=== PATIENT | female | born 1970 | race Caucasian/White ===

== ENCOUNTER 2023-06-06 12:35 | Emergency (ER) | payer OTHER ==
[2023-06-06 12:51] VITALS: BP 111/69; PULSE 94; RESP 18; TEMP 98.8; BMI 40.2
== END 2023-06-06 15:11 | disposition home or self-care (01) ==
LOC: FER 12:35
DX: H61.23 Impacted cerumen, bilateral (principal)
CPT/HCPCS: 99282-25

== ENCOUNTER 2024-03-29 20:07 | Emergency (ER) | payer OTHER ==
[2024-03-29 20:27] VITALS: BP 119/69; PULSE 99; RESP 18; TEMP 98.7; BMI 40.2
[2024-03-29] MEDS ORDERED: LIDOCAINE 5% TOPICAL PATCH ONE (20:27)
[2024-03-29] MEDS ORDERED: ACETAMINOPHEN 325 MG TABLET (FP) ONE (20:27)
[2024-03-29] MEDS: ACETAMINOPHEN 325 MG TABLET (FP) PO ONE (20:32)
[2024-03-29] MEDS: LIDOCAINE 5% TOPICAL PATCH TP ONE (20:32)
[2024-03-30] MEDS ORDERED: LIDOCAINE PATCH REMOVAL MC SCH (08:00)
== END 2024-03-29 21:24 | disposition home or self-care (01) ==
LOC: FER 20:07
DX: M54.9 Dorsalgia, unspecified (principal)
CPT/HCPCS: 99283-25

== ENCOUNTER 2024-12-25 20:37 | Inpatient (IN) | payer OTHER ==
[2024-12-25] MEDS ORDERED: ACETAMINOPHEN 325 MG TABLET (FP) ONE (21:30)
[2024-12-25] MEDS ORDERED: ALPRAZolam 0.25 MG TABLET ONE (21:31)
[2024-12-25] MEDS ORDERED: ALBUTEROL SO4 2.5/IPRATROPIUM 0.5 INH SOL 3 ML VIAL.NEB. NEB ONE (21:31)
[2024-12-25] MEDS: ALBUTEROL SO4 2.5/IPRATROPIUM 0.5 INH SOL 3 ML VIAL.NEB. NEB ONE (21:35)
[2024-12-25] MEDS: ACETAMINOPHEN 325 MG TABLET (FP) PO ONE (21:35)
[2024-12-25] MEDS: ALPRAZolam 1 MG TABLET PO PRN (21:36)
[2024-12-25 23:30] LABS: HEMATOCRIT 39.5 % (32.4-45.2); HEMOGLOBIN 13.6 G/dL (10.7-15.3); MCH 31.4 pg (25.7-33.7); MCHC 34.5 g/dl (32.0-36.0); MEAN CELL VOLUME 91.1 fl (80-96); MEAN PLT VOLUME 8.9 fl (7.5-11.1); PLATELET COUNT 243.5 10^3/uL (134-434); RBC 4.34 10^6/uL (3.60-5.2); RDW 13.4 % (11.6-15.6); WHITE BLOOD COUNT 10.5 10^3/uL (4.0-10.8)
[2024-12-25 23:50] LABS: ALBUMIN 4.5 g/dl (3.4-5.0); BILIRUBIN,TOTAL 0.7 mg/dl (0.2-1); CALCIUM 10.1 mg/dl (8.5-10.1); CREATININE 0.7 mg/dl (0.6-1.3); INR 1.27 (0.83-1.09); POTASSIUM 4.5 mmol/L (3.5-5.1); PROTHROMBIN TIME (PATIENT) 14.4 SEC (9.7-13.0); TOT PROT 7.1 g/dl (6.4-8.2)
[2024-12-26] MEDS ORDERED: ALBUTEROL SO4 2.5/IPRATROPIUM 0.5 INH SOL 3 ML VIAL.NEB. NEB ONE (00:03)
[2024-12-26] MEDS: ALBUTEROL SO4 2.5/IPRATROPIUM 0.5 INH SOL 3 ML VIAL.NEB. NEB ONE (00:05)
[2024-12-26 00:18] LABS: VENOUS BASE EXCESS 2.5 mmol/L (-2-2); VENOUS PCO2 50.8 mmHg (38-52); VENOUS PH 7.37 (7.310-7.410)
[2024-12-26 00:53] LABS: LACTIC ACID 2.9 mmol/L (0.4-2.0)
[2024-12-26] MEDS: SODIUM CHLORIDE 0.9% 1000 ML INFUS.BAG IV ONE (01:07)
[2024-12-26] MEDS ORDERED: OSELTAMIVIR PHOSPHATE 75 MG CAPSULE ONE (01:10)
[2024-12-26] MEDS: OSELTAMIVIR PHOSPHATE 75 MG CAPSULE PO ONE (01:22)
[2024-12-26] MEDS ORDERED: cefTRIAXone SODIUM 1 GM VIAL ONE (01:55)
[2024-12-26] MEDS ORDERED: VANCOMYCIN 1,000 MG VIAL (RESTRICTED TO ID ONLY) ONE (01:55)
[2024-12-26] MEDS: CEFTRIAXONE 1,000 MG in DEXTROSE 5%-WATER - 50 ML IVPB ONE (01:59)
[2024-12-26] MEDS: VANCOMYCIN 2,000 MG in DEXTROSE 5%-WATER - 500 ML IVPB ONE (02:05)
[2024-12-26] MEDS ORDERED: DOCUSATE SODIUM 100 MG CAPSULE (FP) PO PRN (02:10)
[2024-12-26] MEDS ORDERED: ALBUTEROL SO4 2.5/IPRATROPIUM 0.5 INH SOL 3 ML VIAL.NEB. NEB PRN (02:19)
[2024-12-26 03:59] LABS: LACTIC ACID 2.5 mmol/L (0.4-2.0)
[2024-12-26 06:26] VITALS: BMI 39.1
[2024-12-26] MEDS: INSULIN ASPART SLIDING SCALE (NOVOLOG) 1 VIAL SQ SCH (07:07)
[2024-12-26] MEDS: ACETAMINOPHEN 325 MG TABLET (FP) PO PRN (08:10)
[2024-12-26 09:17] LABS: INR 1.11 (0.83-1.09); PROTHROMBIN TIME (PATIENT) 12.6 SEC (9.7-13.0)
[2024-12-26 09:19] LABS: ACTIVATED PTT 33.8 SECONDS (25.2-36.5)
[2024-12-26 09:38] LABS: CALCIUM 9.6 mg/dl (8.5-10.1); CREATININE 0.8 mg/dl (0.6-1.3); MAGNESIUM 2.1 mg/dL (1.8-2.4); POTASSIUM 4.7 mmol/L (3.5-5.1)
[2024-12-26 11:59] LABS: BASO % 0.2 % (0-2.0); EOS % 1.6 % (0-4.5); HEMATOCRIT 42.1 % (32.4-45.2); HEMOGLOBIN 13.6 GM/dL (10.7-15.3); LYMPH % 11.9 % (8-40); MCHC 32.4 g/dl (32.0-36.0); MEAN CELL VOLUME 92.7 fl (80-96); MEAN PLT VOLUME 9.1 fl (7.5-11.1); MONO % 10.9 % (3.8-10.2); NEUT % 75.4 % (42.8-82.8); PLATELET COUNT 222 10^3/uL (134-434); RBC 4.54 M/mm3 (3.60-5.2); RDW 14.4 % (11.6-15.6); WHITE BLOOD COUNT 9.3 K/mm3 (4.0-10.0)
[2024-12-26] MEDS: ACETAMINOPHEN 1000 MG/100 ML BAG IVPB PRN (12:14)
[2024-12-26 14:31] LABS: PH,URINE 5.5 (4.5-8); URINE APPEARANCE CLEAR; URINE BILIRUBIN NEGATIVE (NEGATIVE); URINE COLOR YELLOW; URINE GLUCOSE (UA) NEGATIVE (NEGATIVE); URINE KETONE NEGATIVE (NEGATIVE)
[2024-12-26 14:32] LABS: URINE BACTERIA FEW /hpf (NEGATIVE); URINE LEUK ESTERASE 0 (NEGATIVE); URINE NITRITE NEGATIVE (NEGATIVE); URINE PROTEIN 1+ (NEGATIVE); URINE RBC 0-1 /hpf (0-4); URINE UROBILINOGEN 0.2 (0.2-1.0)
[2024-12-26] MEDS: VANCOMYCIN/WATER FOR INJ (PEG) 1,000 MG/200 ML BAG IVPB ONE (15:30)
[2024-12-26 17:21] LABS: URINE AMPHETAMINES NEGATIVE (NEGATIVE)
[2024-12-26 17:22] LABS: METHADONE, UR NEGATIVE (NEGATIVE); PHENCYCLIDINE,URINE NEGATIVE (NEGATIVE); URINE BARBITURATES NEGATIVE (NEGATIVE); URINE BENZODIAZEPINES NEGATIVE (NEGATIVE)
[2024-12-26 17:27] LABS: COCAINE, UR NEGATIVE (NEGATIVE); OPIATES, URI NEGATIVE (NEGATIVE)
[2024-12-26] MEDS: LACTATED RINGERS SOLUTION 1,000 ML/1,000 ML INFUS.BAG IV SCH (18:19)
[2024-12-26] MEDS: OSELTAMIVIR PHOSPHATE 75 MG CAPSULE PO SCH (21:12)
[2024-12-26] MEDS: CEFTRIAXONE 1 GM in DEXTROSE 5%-WATER - 50 ML IVPB SCH (21:12)
[2024-12-26] MEDS: BENZOCAINE/MENTH/CETYLPYRD CL 1 EACH LOZENGE MM PRN (22:23)
[2024-12-27 08:52] LABS: BILIRUBIN,TOTAL 0.6 mg/dl (0.2-1); CALCIUM 9.3 mg/dl (8.5-10.1); CREATININE 0.5 mg/dl (0.6-1.3); POTASSIUM 4.2 mmol/L (3.5-5.1); TOT PROT 6.8 g/dl (6.4-8.2)
[2024-12-27 09:19] LABS: HEMATOCRIT 37.2 % (32.4-45.2); HEMOGLOBIN 11.9 GM/dL (10.7-15.3); MCH 29.1 pg (25.7-33.7); MCHC 31.9 g/dl (32.0-36.0); MEAN CELL VOLUME 91.3 fl (80-96); MEAN PLT VOLUME 9.2 fl (7.5-11.1); PLATELET COUNT 209 10^3/uL (134-434); RBC 4.08 M/mm3 (3.60-5.2); RDW 13.6 % (11.6-15.6); WHITE BLOOD COUNT 11.6 K/mm3 (4.0-10.0)
[2024-12-27] MEDS: ENOXAPARIN NA (PORCINE) 40 MG/0.4 ML DISP.SYRIN SQ SCH (10:01)
[2024-12-27 10:36] LABS: ANISOCYTOSIS 0; HELMET CELLS 0; HOWELL-JOLLY BODIES 0; MACROCYTOSIS 0; OVALOCYTE 0; ROULEAU 0; SICKELED CELLS 0; TARGET CELLS 0; TEAR DROP CELLS 0; TOXIC GRANULATION 0
[2024-12-27] MEDS: ACETAMINOPHEN 1000 MG/100 ML BAG IVPB PRN (17:30)
[2024-12-28] MEDS ORDERED: BENZOCAINE/MENTHOL (CHLORASEPTIC ) LOZENGE MM PRN (07:13)
[2024-12-28 09:13] LABS: ALBUMIN 3.8 g/dl (3.4-5.0); BILIRUBIN,TOTAL 0.5 mg/dl (0.2-1); CREATININE 0.5 mg/dl (0.6-1.3); POTASSIUM 4.1 mmol/L (3.5-5.1); TOT PROT 6.5 g/dl (6.4-8.2)
[2024-12-28] MEDS ORDERED: REFRIGERATED ANITBIOTICS ONE ×2 (09:23→19:47)
[2024-12-28 10:28] LABS: BASO % 0.3 % (0-2.0); EOS % 0.2 % (0-4.5); HEMATOCRIT 33.4 % (32.4-45.2); HEMOGLOBIN 11.2 GM/dL (10.7-15.3); LYMPH % 11.8 % (8-40); MCH 30.3 pg (25.7-33.7); MCHC 33.6 g/dl (32.0-36.0); MEAN CELL VOLUME 90.2 fl (80-96); MEAN PLT VOLUME 9.4 fl (7.5-11.1); MONO % 5.4 % (3.8-10.2); NEUT % 82.3 % (42.8-82.8); PLATELET COUNT 195 10^3/uL (134-434); RDW 13.2 % (11.6-15.6); WHITE BLOOD COUNT 7.6 K/mm3 (4.0-10.0)
[2024-12-28] MEDS: DOXYCYCLINE INJECTION 100 MG in DEXTROSE 5%-WATER 100 ML IVPB SCH (17:51)
[2024-12-29 09:17] LABS: BASO % 0.3 % (0-2.0); EOS % 1.6 % (0-4.5); HEMATOCRIT 34.2 % (32.4-45.2); HEMOGLOBIN 11.5 GM/dL (10.7-15.3); LYMPH % 24.2 % (8-40); MCH 30.3 pg (25.7-33.7); MCHC 33.5 g/dl (32.0-36.0); MEAN CELL VOLUME 90.2 fl (80-96); MEAN PLT VOLUME 8.9 fl (7.5-11.1); MONO % 6.6 % (3.8-10.2); NEUT % 67.3 % (42.8-82.8); PLATELET COUNT 210 10^3/uL (134-434); RBC 3.79 M/mm3 (3.60-5.2); RDW 13.3 % (11.6-15.6); WHITE BLOOD COUNT 5.6 K/mm3 (4.0-10.0)
[2024-12-29 09:21] LABS: ALBUMIN 3.9 g/dl (3.4-5.0); BILIRUBIN,TOTAL 0.5 mg/dl (0.2-1); CALCIUM 9.1 mg/dl (8.5-10.1); CREATININE 0.4 mg/dl (0.6-1.3); POTASSIUM 4.3 mmol/L (3.5-5.1); TOT PROT 6.5 g/dl (6.4-8.2)
[2024-12-29] MEDS ORDERED: ARIPiprazole 20 MG TABLET PO SCH (10:00)
[2024-12-29] MEDS: LITHIUM CARBONATE 300 MG CAPSULE PO SCH ×2 (10:32→21:04)
[2024-12-29] MEDS: GABAPENTIN 100 MG CAPSULE PO SCH (10:32)
[2024-12-29] MEDS: ALBUTEROL SO4 2.5/IPRATROPIUM 0.5 INH SOL 3 ML VIAL.NEB. NEB SCH (19:10)
[2024-12-29] MEDS: ATORVASTATIN CA 10 MG TABLET (FP) PO SCH (21:05)
[2024-12-30 07:44] LABS: HEMATOCRIT 39.9 % (32.4-45.2); HEMOGLOBIN 13.1 G/dL (10.7-15.3); MCH 30.2 pg (25.7-33.7); MCHC 32.8 g/dl (32.0-36.0); MEAN PLT VOLUME 9.2 fl (7.5-11.1); PLATELET COUNT 211.7 10^3/uL (134-434); RBC 4.34 10^6/uL (3.60-5.2); RDW 13.3 % (11.6-15.6)
[2024-12-30 08:58] LABS: CALCIUM 9.6 mg/dl (8.5-10.1); CREATININE 0.5 mg/dl (0.6-1.3); MAGNESIUM 2.4 mg/dL (1.8-2.4); PHOSPHOROUS 2.7 (2.5-4.9); POTASSIUM 4.4 mmol/L (3.5-5.1)
[2024-12-30 14:44] VITALS: BP 118/62; PULSE 84; RESP 18; TEMP 98.3
== END 2024-12-30 17:40 | disposition home or self-care (01) | DRG 195 ==
LOC: FER 20:37 → FM/S 12-26 01:04 → UNDOADMIN 12-26 02:16 → FM/S 12-26 02:16
PROVIDERS: ADMIT Internal Medicine; ATTEND Internal Medicine
DX: J11.00 Influenza due to unidentified influenza virus with unspecified type of pneumonia (principal); F31.9 Bipolar disorder, unspecified; I10 Essential (primary) hypertension; E11.9 Type 2 diabetes mellitus without complications; E78.5 Hyperlipidemia, unspecified
CPT/HCPCS: 0241U-QW; 36415; 71046-TC-FY; 71250-TC; 80048; 80053; 80178; 80307; 81003; 82803; 82962; 83605; 83735; 84100; 85025; 85027; 85610; 85651; 85730; 86140; 87040; 87899; 93005; 94640; 94761; 97116-GP; 97162-GP; 99285-25; J0131